=== PATIENT | female | born 1995 | race Caucasian/White ===

== ENCOUNTER 2017-06-26 13:29 | Emergency (ER) | payer OTHER ==
[~2017-06-26] VITALS: Ht 157.5 cm; Wt 77.1 kg
[~2017-06-26 13:29] MED LIST: ALBU90OI INH; AMOX500 PO; Cleocin HCl300 MG PO; HYDACE5325 PO; IBUP600 PO; MECL12.5 PO; PHENA200 PO; Prednisone20 MG PO; RXCLIN PO; RXPHEN200 PO; SULTRIDS PO; TRAM50 PO; Zithromax250 MG PO
[2017-06-26] MEDS ORDERED: CEPH500 PO (14:49)
[2017-08-11] MEDS ORDERED: Cleocin HCl300 MG PO (23:34)
== END 2017-06-26 16:06 | disposition home or self-care (01) ==
LOC: ER 13:29
DX: K02.9 Dental caries, unspecified (principal); K04.7 Periapical abscess without sinus; F17.200 Nicotine dependence, unspecified, uncomplicated; Z88.0 Allergy status to penicillin; Z91.048 Other nonmedicinal substance allergy status; Z91.011 Allergy to milk products; Z79.2 Long term (current) use of antibiotics
CPT/HCPCS: 96374; 96375; 99283; J1885

== ENCOUNTER 2017-06-28 03:46 | Emergency (ER) | payer OTHER ==
[~2017-06-28] VITALS: Ht 157.5 cm; Wt 77.1 kg
[~2017-06-28 03:46] MED LIST changes: +CEPH500 PO
[2017-06-28] MEDS ORDERED: Cleocin HCl300 MG PO (04:06)
[2017-06-28] MEDS ORDERED: Ultram50 MG PO (04:06)
[2017-08-11] MEDS ORDERED: Cleocin HCl300 MG PO (23:34)
== END 2017-06-28 05:01 | disposition home or self-care (01) ==
LOC: ER 03:46
DX: K04.7 Periapical abscess without sinus (principal); Z88.0 Allergy status to penicillin; Z88.8 Allergy status to other drugs, medicaments and biological substances; Z79.899 Other long term (current) drug therapy; Z79.2 Long term (current) use of antibiotics; F17.200 Nicotine dependence, unspecified, uncomplicated
CPT/HCPCS: 96365; 96375; 99283; J1885; J2405

== ENCOUNTER 2017-07-15 04:14 | Emergency (ER) | payer OTHER ==
[~2017-07-15] VITALS: Ht 157.5 cm; Wt 59.0 kg
[~2017-07-15 04:14] MED LIST changes: +Ultram50 MG PO
[2017-08-11] MEDS ORDERED: Cleocin HCl300 MG PO (23:34)
== END 2017-07-15 04:51 | disposition home or self-care (01) ==
LOC: ER 04:14
DX: K08.89 Other specified disorders of teeth and supporting structures (principal); Z88.0 Allergy status to penicillin; Z88.8 Allergy status to other drugs, medicaments and biological substances; Z79.2 Long term (current) use of antibiotics; F17.200 Nicotine dependence, unspecified, uncomplicated
CPT/HCPCS: 99282

== ENCOUNTER 2017-08-16 23:07 | Emergency (ER) | payer OTHER ==
[~2017-08-16] VITALS: Ht 157.5 cm; Wt 77.1 kg
[2017-08-16] MEDS ORDERED: IBUPROFEN200 MG PO (23:35)
[2017-08-16] MEDS ORDERED: ACET500 PO (23:35)
== END 2017-08-17 00:01 | disposition home or self-care (01) ==
LOC: ER 23:07
DX: K02.9 Dental caries, unspecified (principal); G89.29 Other chronic pain; I88.9 Nonspecific lymphadenitis, unspecified; F17.210 Nicotine dependence, cigarettes, uncomplicated; Z88.0 Allergy status to penicillin; Z91.011 Allergy to milk products; Z91.048 Other nonmedicinal substance allergy status
CPT/HCPCS: 99283; J1100

== ENCOUNTER 2017-08-25 11:08 | Emergency (ER) | payer OTHER ==
[~2017-08-25] VITALS: Ht 157.5 cm; Wt 77.1 kg
[~2017-08-25 11:08] MED LIST changes: +ACET500 PO; +IBUPROFEN200 MG PO
[2017-08-25 11:53] LABS: BASOPHILS PERCENT AUTO 1 % (0-2); EOSINOPHILS ABSOLUTE AUTO 0.29 K/mm3 (0.00-0.68); EOSINOPHILS PERCENT AUTO 2 % (0-6); Hemoglobin 14.2 g/dL (11.5-16.0); IMMATURE GRAN ABSOLUTE AUTO 0.05 K/mm3 (0.00-0.10); IMMATURE GRAN PERCENT AUTO 0 % (0-1); LYMPHOCYTES ABSOLUTE AUTO 2.51 K/mm3 (0.84-5.20); LYMPHOCYTES PERCENT AUTO 19 % (21-46); MONOCYTES ABSOLUTE AUTO 0.72 K/mm3 (0.16-1.47); MONOCYTES PERCENT AUTO 5 % (4-13); Mean Corpuscular Volume 88 fL (80-100); Mean Platelet Volume 9.2 fL (9.1-12.4); NEUTROPHILS ABSOLUTE AUTO 9.59 K/mm3 (1.96-9.15); NEUTROPHILS PERCENT AUTO 72 % (41-73); Platelet Count 372 K/mm3 (150-400); RDW Coefficient Variation 13.2 % (11.7-14.2); White Blood Cell Count 13.26 K/mm3 (4.00-11.30)
[2017-08-25 12:12] LABS: Alanine Aminotransfer (ALT/SGP 46 U/L (12-78); Albumin, Blood 3.8 g/dL (3.4-5.0); Albumin/Globulin Ratio 1.2 (0.8-1.8); Alk Phos 60 U/L (50-136); Anion Gap 6 mmol/L (6-16); Aspartate Aminotrans (AST/SGOT 20 U/L (12-37); Bilirubin, Total 0.3 mg/dL (0.1-1.0); Blood Urea Nitrogen 12 mg/dL (8-24); Bun/Creatinine Ratio 21.4 (12.0-20.0); CO2, Blood 23 mmol/L (21-32); Calcium, Blood 8.7 mg/dL (8.5-10.1); Chloride, Blood 106 mmol/L (98-108); Creatinine, Blood 0.56 mg/dL (0.40-1.00); Globulin, Blood 3.2 g/dL (2.2-4.0); Glomerular Filtration Rate >60 (60-); Glucose, Blood 101 mg/dL (70-99); Potassium, Blood 3.6 mmol/L (3.5-5.5); Sodium, Blood 135 mmol/L (136-145)
[2017-08-25] MEDS ORDERED: Keflex500 MG PO (13:25)
== END 2017-08-25 13:37 | disposition home or self-care (01) ==
LOC: ER 11:08
PROVIDERS: Physician Assistant
DX: K04.7 Periapical abscess without sinus (principal); Z88.0 Allergy status to penicillin; Z88.8 Allergy status to other drugs, medicaments and biological substances; Z79.891 Long term (current) use of opiate analgesic; F17.200 Nicotine dependence, unspecified, uncomplicated
CPT/HCPCS: 36415; 80053; 85025; 99283

== ENCOUNTER 2017-11-10 21:43 | Emergency (ER) | payer OTHER ==
[~2017-11-10] VITALS: Ht 157.5 cm; Wt 72.6 kg
[~2017-11-10 21:43] MED LIST changes: +Keflex500 MG PO
[2017-11-10] MEDS ORDERED: Verotin-Gr Cap1 EACH PO (22:40)
== END 2017-11-11 00:19 | disposition home or self-care (01) ==
LOC: ER 21:43
DX: O02.1 Missed abortion (principal); Z88.0 Allergy status to penicillin; Z88.8 Allergy status to other drugs, medicaments and biological substances; Z79.899 Other long term (current) drug therapy; F17.210 Nicotine dependence, cigarettes, uncomplicated
CPT/HCPCS: 36415; 81000; 81025; 84703; 99283